=== PATIENT | male | born 1940 | race Two or more races ===

== ENCOUNTER 2017-11-17 12:35 | Emergency (ER) | payer OTHER ==
[~2017-11-17] VITALS: Ht 175.3 cm; Wt 63.5 kg
[2017-11-17] MEDS ORDERED: AMBIEN5 MG (12:59)
[2017-11-17] MEDS ORDERED: AMLODIPINE BESYL5 MG (12:59)
[2017-11-18] MEDS ORDERED: INTESTINEX680 M1 PO (06:23)
[2017-11-18] MEDS ORDERED: ZANTAC300 MG PO (06:23)
[2017-11-18] MEDS ORDERED: LEVSIN/SL0.125 MG PO (06:23)
[2017-11-18] MEDS ORDERED: ULTRACET PO (06:23)
== END 2017-11-18 06:19 | disposition home or self-care (01) ==
LOC: ER 12:35
DX: K52.89 Other specified noninfective gastroenteritis and colitis (principal); K21.9 Gastro-esophageal reflux disease without esophagitis; E86.0 Dehydration; R10.84 Generalized abdominal pain; R19.7 Diarrhea, unspecified

== ENCOUNTER 2019-02-01 19:12 | Emergency (ER) | payer OTHER ==
[~2019-02-01] VITALS: Ht 175.3 cm; Wt 64.4 kg
[~2019-02-01 19:12] MED LIST: AMBIEN5 MG; AMLODIPINE BESYL5 MG; INTESTINEX680 M1 PO; LEVSIN/SL0.125 MG PO; ULTRACET PO; ZANTAC300 MG PO
[2019-02-01] MEDS ORDERED: SYMBICORT 16010.2 GM (19:41)
== END 2019-02-01 23:31 | disposition home or self-care (01) ==
LOC: ER 19:12
DX: D64.89 Other specified anemias (principal); R53.1 Weakness; R41.0 Disorientation, unspecified